=== PATIENT | female | born 1955 | race Caucasian/White ===

== ENCOUNTER 2020-05-09 12:42 | Inpatient (IN) ==
[2020-05-09] MEDS ORDERED: SODIUM CHLORIDE 0.9% 1,000 ML IV STA (13:08)
[2020-05-09] MEDS ORDERED: ONDANSETRON 4 MG/2 ML VIAL IV STA (14:23)
[2020-05-09] MEDS ORDERED: HYDROmorphone 2 MG/1 ML VIAL IV STA (14:23)
[2020-05-09] MEDS ORDERED: DEXAMETHASONE 10 MG/1 ML VIAL IV STA (14:23)
[2020-05-09 14:31] LABS: Basophils # 0.1 10*3/uL (0.0-0.2); Basophils % 0.4 % (0.0-0.8); Eosinophils # 0.1 10*3/uL (0.0-0.87); Eosinophils % 0.4 % (0.00-10.9); Hematocrit 42.8 VOL% (35.7-47.0); Hemoglobin 13.6 GM/DL (12.0-16.0); Immature Granulocytes % 1.1 %; Immature Granulocytes Absolute 0.15 #; Lymphocytes # 1.3 10*3/uL (1.4-4.0); Lymphocytes % 9.2 % (21.3-54.2); Mean Corpuscular HGB Conc 31.8 GM/DL (32-36); Mean Corpuscular Volume 92.6 FL (87-102); Mean Platelet Volume 11.3 FL (9.6-12.0); Monocytes % 5.2 % (1.7-12.7); Neutrophils % 83.7 % (38.7-73.9); Platelet Count 301 T/CUMM (130-400); Red Blood Count 4.62 MC/CUMM (3.8-5.5); Red Cell Distribution Width 13.8 % (9.3-17.3); White Blood Count 13.9 T/CUMM (4-12)
[2020-05-09 14:40] LABS: PT Patient Result 10.6 SECS (9.8-11.9)
[2020-05-09 14:49] LABS: Albumin 3.7 G/DL (3.4-5.0); Bilirubin,Total 0.6 MG/DL (0.2-1.0); Calcium 8.7 MG/DL (8.5-10.1); Total Protein 7.1 G/DL (6.4-8.3)
[2020-05-09] MEDS ORDERED: GLUCAGON 1 MG VIAL IM PRN (15:06)
[2020-05-09] MEDS ORDERED: DEXTROSE 50% 25 GM/50 ML VIAL IV PRN (15:06)
[2020-05-09] MEDS ORDERED: DOCUSATE SODIUM 100 MG CAPSULE PO PRN (15:06)
[2020-05-09] MEDS ORDERED: ACETAMINOPHEN 325 MG TABLET PO PRN (15:06)
[2020-05-09] MEDS ORDERED: PROMETHAZINE 25 MG/1 ML VIAL IM PRN (15:06)
[2020-05-09] MEDS ORDERED: hydrALAZINE 20 MG/1 ML VIAL IV PRN (15:06)
[2020-05-09 15:44] LABS: Risk Ratio 8.23; Thyroid Stimulating Hormone 6.42 uIU/ml (0.358-3.74); VLDL CHOLESTEROL 48.8 MG/DL
[2020-05-09] MEDS: METOPROLOL TARTRATE 25 MG TABLET PO SCH ×2 (16:45→20:24)
[2020-05-09] MEDS: SODIUM CHLORIDE 0.9% 1,000 ML IV SCH (17:53)
[2020-05-09] MEDS: PIPERACILLIN/TAZOBACTAM 3,375 MG in SODIUM CHLORIDE 0.9% 100 ML IV SCH (17:53)
[2020-05-09 17:58] LABS: Free T4 (Free Thyroxine) 0.81 NG/DL (0.76-1.46)
[2020-05-09] MEDS: ONDANSETRON 4 MG/2 ML VIAL IV PRN (18:10)
[2020-05-09] MEDS: LORazepam 0.5 MG TABLET PO PRN (20:24)
[2020-05-09] MEDS: ATORVASTATIN 40 MG TABLET PO SCH (20:25)
[2020-05-09] MEDS: ENOXAPARIN 40 MG/0.4 ML SYRINGE SUBCUT SCH (20:25)
[2020-05-10] MEDS: PIPERACILLIN/TAZOBACTAM 3,375 MG in SODIUM CHLORIDE 0.9% 100 ML IV SCH ×3 (01:54→16:54)
[2020-05-10] MEDS: ONDANSETRON 4 MG/2 ML VIAL IV PRN (01:55)
[2020-05-10 05:06] LABS: Apearance,Urine CLEAR (Clear); Bilirubin,Urine Negative (Negative); Blood, Urine Negative (Negative); Glucose,Urine (UA) Negative (Negative); Ketones,Urine Negative (Negative); Nitrite,Urine Negative (Negative); Protein,Urine Negative; RBC,Urine 1 /HPF (0-4); Squamous Epithelial Cell,Urine Occasional /HPF (0-10); Urine Color Straw (Yellow); Urine Specific Gravity 1.013 (1.001-1.035); Urine Urobilinogen < 2.0 EU/DL (0.2-1.0); WBC,Urine <1 /HPF (0-6)
[2020-05-10 05:45] LABS: Basophils % 0.2 % (0.0-0.8); Hematocrit 38.7 VOL% (35.7-47.0); Hemoglobin 12.6 GM/DL (12.0-16.0); Immature Granulocytes % 0.8 %; Lymphocytes # 1.8 10*3/uL (1.4-4.0); Lymphocytes % 13.9 % (21.3-54.2); Mean Corpuscular HGB Conc 32.6 GM/DL (32-36); Mean Corpuscular Volume 91.3 FL (87-102); Mean Platelet Volume 11.2 FL (9.6-12.0); Monocytes % 6.2 % (1.7-12.7); Neutrophils % 78.9 % (38.7-73.9); Platelet Count 285 T/CUMM (130-400); Red Blood Count 4.24 MC/CUMM (3.8-5.5); Red Cell Distribution Width 13.8 % (9.3-17.3); White Blood Count 12.6 T/CUMM (4-12)
[2020-05-10 06:18] LABS: Calcium 8.4 MG/DL (8.5-10.1); Osmolality,Calculated 277.5 MOS/KG (273-304)
[2020-05-10] MEDS: PANTOPRAZOLE 40 MG TABLET PO SCH (08:33)
[2020-05-10] MEDS: METOPROLOL TARTRATE 25 MG TABLET PO SCH ×2 (08:33→20:50)
[2020-05-10] MEDS ORDERED: DEXAMETHASONE 4 MG TABLET PO SCH (09:00)
[2020-05-10] MEDS: DEXAMETHASONE 4 MG TABLET PO SCH ×2 (15:09→20:50)
[2020-05-10] MEDS: SODIUM CHLORIDE 0.9% 1,000 ML IV SCH (15:55)
[2020-05-10] MEDS: guaiFENesin/CODEINE 5 ML LIQUID PO PRN (19:40)
[2020-05-10] MEDS: ATORVASTATIN 40 MG TABLET PO SCH (20:49)
[2020-05-10] MEDS: LORazepam 0.5 MG TABLET PO PRN (20:49)
[2020-05-10] MEDS: ENOXAPARIN 40 MG/0.4 ML SYRINGE SUBCUT SCH (20:54)
[2020-05-11] MEDS: PIPERACILLIN/TAZOBACTAM 3,375 MG in SODIUM CHLORIDE 0.9% 100 ML IV SCH ×3 (01:47→16:26)
[2020-05-11] MEDS: guaiFENesin/CODEINE 5 ML LIQUID PO PRN ×3 (01:47→21:47)
[2020-05-11] MEDS: SODIUM CHLORIDE 0.9% 1,000 ML IV SCH ×3 (01:50→22:50)
[2020-05-11 06:11] LABS: Basophils % 0.1 % (0.0-0.8); Eosinophils % 0.1 % (0.00-10.9); Hematocrit 37.3 VOL% (35.7-47.0); Immature Granulocytes % 0.7 %; Immature Granulocytes Absolute 0.09 #; Lymphocytes # 1.9 10*3/uL (1.4-4.0); Lymphocytes % 15.1 % (21.3-54.2); Mean Corpuscular HGB Conc 32.2 GM/DL (32-36); Mean Corpuscular Volume 92.6 FL (87-102); Mean Platelet Volume 11.9 FL (9.6-12.0); Monocytes % 4.2 % (1.7-12.7); Neutrophils % 79.8 % (38.7-73.9); Platelet Count 268 T/CUMM (130-400); Red Blood Count 4.03 MC/CUMM (3.8-5.5); White Blood Count 12.3 T/CUMM (4-12)
[2020-05-11 06:48] LABS: Calcium 8.3 MG/DL (8.5-10.1); Osmolality,Calculated 279.4 MOS/KG (273-304)
[2020-05-11] MEDS: PANTOPRAZOLE 40 MG TABLET PO SCH (08:27)
[2020-05-11] MEDS: DEXAMETHASONE 4 MG TABLET PO SCH ×3 (08:28→21:47)
[2020-05-11] MEDS: METOPROLOL TARTRATE 25 MG TABLET PO SCH ×2 (08:28→21:48)
[2020-05-11] MEDS: amLODIPine 5 MG TABLET PO SCH (08:29)
[2020-05-11] MEDS ORDERED: ALPRAZolam 0.25 MG TABLET PO PRN (09:15)
[2020-05-11] MEDS: ATORVASTATIN 40 MG TABLET PO SCH (21:47)
[2020-05-11] MEDS: ENOXAPARIN 40 MG/0.4 ML SYRINGE SUBCUT SCH (21:49)
[2020-05-12] MEDS: PIPERACILLIN/TAZOBACTAM 3,375 MG in SODIUM CHLORIDE 0.9% 100 ML IV SCH (02:40)
[2020-05-12] MEDS: guaiFENesin/CODEINE 5 ML LIQUID PO PRN (03:25)
[2020-05-12 05:43] LABS: Basophils % 0.1 % (0.0-0.8); Hematocrit 35.4 VOL% (35.7-47.0); Hemoglobin 11.1 GM/DL (12.0-16.0); Immature Granulocytes Absolute 0.09 #; Lymphocytes # 1.6 10*3/uL (1.4-4.0); Lymphocytes % 17.5 % (21.3-54.2); Mean Corpuscular HGB Conc 31.4 GM/DL (32-36); Mean Corpuscular Volume 94.7 FL (87-102); Mean Platelet Volume 11.7 FL (9.6-12.0); Monocytes % 3.4 % (1.7-12.7); Platelet Count 238 T/CUMM (130-400); Red Blood Count 3.74 MC/CUMM (3.8-5.5); White Blood Count 9.4 T/CUMM (4-12)
[2020-05-12 06:19] LABS: Calcium 7.9 MG/DL (8.5-10.1); Osmolality,Calculated 283.1 MOS/KG (273-304)
[2020-05-12] MEDS ORDERED: POTASSIUM CHLORIDE 20 MEQ TABLET PO ONE (07:05)
[2020-05-12] MEDS: PANTOPRAZOLE 40 MG TABLET PO SCH (10:03)
[2020-05-12] MEDS: amLODIPine 5 MG TABLET PO SCH (10:03)
[2020-05-12] MEDS: DEXAMETHASONE 4 MG TABLET PO SCH ×3 (10:03→21:02)
[2020-05-12] MEDS: METOPROLOL TARTRATE 25 MG TABLET PO SCH ×2 (10:03→21:02)
[2020-05-12] MEDS: guaiFENesin/CODEINE 5 ML LIQUID PO SCH ×3 (12:30→21:02)
[2020-05-12] MEDS: ATORVASTATIN 40 MG TABLET PO SCH (21:02)
[2020-05-12] MEDS: ENOXAPARIN 40 MG/0.4 ML SYRINGE SUBCUT SCH (21:03)
[2020-05-12] MEDS: SODIUM CHLORIDE 0.9% 1,000 ML IV SCH (22:15)
[2020-05-13] MEDS: guaiFENesin/CODEINE 5 ML LIQUID PO SCH ×3 (01:53→08:50)
[2020-05-13] MEDS: SODIUM CHLORIDE 0.9% 1,000 ML IV SCH (01:54)
[2020-05-13] MEDS ORDERED: MAGNESIUM HYDROXIDE SUSP 30 ML UDCUP PO PRN (07:10)
[2020-05-13] MEDS ORDERED: TEMAZEPAM 7.5 MG CAPSULE PO PRN (07:10)
[2020-05-13] MEDS ORDERED: LACTULOSE 20 GM/30 ML UDCUP PO PRN (07:10)
[2020-05-13] MEDS ORDERED: guaiFENesin 200 MG/10 ML UDCUP PO PRN (07:10)
[2020-05-13] MEDS ORDERED: ALUMINUM/MAGNES/SIMETH MAX STR 30 ML UDCUP PO PRN (07:10)
[2020-05-13] MEDS ORDERED: PROMETHAZINE INJ 25 MG in SODIUM CHLORIDE 0.9% 50 ML IV PRN (07:10)
[2020-05-13] MEDS ORDERED: ONDANSETRON 4 MG/2 ML VIAL IV PRN (07:10)
[2020-05-13] MEDS ORDERED: diphenhydrAMINE CAP 25 MG CAPSULE PO PRN (07:10)
[2020-05-13] MEDS ORDERED: traMADol 50 MG TABLET PO PRN (07:10)
[2020-05-13] MEDS ORDERED: ALPRAZolam 0.25 MG TABLET PO PRN (07:10)
[2020-05-13] MEDS ORDERED: LOPERAMIDE 2 MG CAPSULE PO PRN ×2 (07:10)
[2020-05-13] MEDS ORDERED: ACETAMINOPHEN 325 MG TABLET PO PRN (07:10)
[2020-05-13] MEDS ORDERED: MYLANTA/LIDO VISC 2:1 300 ML BOTTLE SWISH/SWAL PRN (07:10)
[2020-05-13] MEDS ORDERED: MYLANTA/LIDO VISC 2:1 300 ML BOTTLE SWISH/SPIT PRN (07:10)
[2020-05-13] MEDS: ONDANSETRON 4 MG/2 ML VIAL IV PRN (07:19)
[2020-05-13 07:40] LABS: Basophils % 0.2 % (0.0-0.8); Eosinophils % 0.1 % (0.00-10.9); Hematocrit 41.8 VOL% (35.7-47.0); Hemoglobin 13.3 GM/DL (12.0-16.0); Immature Granulocytes % 2.4 %; Immature Granulocytes Absolute 0.26 #; Lymphocytes # 2.5 10*3/uL (1.4-4.0); Lymphocytes % 22.8 % (21.3-54.2); Mean Corpuscular HGB Conc 31.8 GM/DL (32-36); Mean Corpuscular Volume 93.3 FL (87-102); Mean Platelet Volume 11.4 FL (9.6-12.0); Monocytes % 7.4 % (1.7-12.7); Neutrophils % 67.1 % (38.7-73.9); Platelet Count 340 T/CUMM (130-400); Red Blood Count 4.48 MC/CUMM (3.8-5.5); Red Cell Distribution Width 13.7 % (9.3-17.3)
[2020-05-13 08:00] LABS: Calcium 8.9 MG/DL (8.5-10.1); Osmolality,Calculated 283.1 MOS/KG (273-304)
[2020-05-13 08:03] LABS: Albumin 3.5 G/DL (3.4-5.0); Bilirubin,Total 0.8 MG/DL (0.2-1.0); Osmolality,Calculated 282.3 MOS/KG (273-304); Total Protein 7.2 G/DL (6.4-8.3)
[2020-05-13] MEDS: DEXAMETHASONE 4 MG TABLET PO SCH (08:50)
[2020-05-13] MEDS: amLODIPine 5 MG TABLET PO SCH (08:50)
[2020-05-13] MEDS: METOPROLOL TARTRATE 25 MG TABLET PO SCH (08:50)
[2020-05-13] MEDS: PANTOPRAZOLE 40 MG TABLET PO SCH (08:50)
[2020-05-13 12:21] VITALS: BP 133/60
[2020-05-14] MEDS ORDERED: LEVOTHYROXINE 50 MCG TABLET PO SCH (06:30)
== END 2020-05-13 12:44 | disposition home or self-care (01) | DRG 55 ==
LOC: N.ED 12:42 → SUATTDRO 14:20 → N.EDINP 14:20 → N.4E 14:51
PROVIDERS: ADMIT Internal Medicine; ATTEND Emergency Medicine